=== PATIENT | male | born 1965 | race Caucasian/White ===

== ENCOUNTER 2018-04-29 15:35 | Emergency (ER) | payer BC, OTHER ==
[2018-04-29] MEDS ORDERED: Zofran 4 MG/2 ML VIAL IV ONE (15:36)
[2018-04-29] MEDS ORDERED: Sodium Chloride 0.9% 1000 ML 1,000 ML IV STA ×2 (15:36→16:09)
[2018-04-29] MEDS ORDERED: THIAMINE 200 MG/2 ML IV ONE (15:39)
--- NOTE | 2018-04-29 15:45 | ERPHSYRPT ---
- History of Present Illness Time Seen by Provider: 04/29/18 15:40 Source: EMS Exam Limitations: clinical condition Physician History: 53-year-old white male brought by medics with complaint patient unresponsive with breathing. Patient arrives he does withdraw from pain he is able to spontaneously rollover. He is not answering questions. patient has been doing some vomiting Past medical history hypertension Past surgical history includes skull fracture, 2 knee surgeries, patellar meniscus, appendix patient was given Narcan by medics prior to arrival Timing/Duration: today Severity: moderate Associated Symptoms: nausea, vomiting, other (Decreased level of consciousness) Allergies/Adverse Reactions: No Known Drug Allergies Allergy (Verified 04/29/18 16:04) Home Medications: Amlodipine Besylate 5 mg [Norvasc 5 mg] 5 mg PO DAILY 04/29/18 [History] - Review of Systems Constitutional: No Fever, No Chills Eyes: No Symptoms Ears, Nose, & Throat: No Symptoms Respiratory: No Cough, No Dyspnea Cardiac: No Chest Pain, No Edema, No Syncope Abdominal/Gastrointestinal: Nausea, Vomiting, No Abdominal Pain, No Diarrhea Genitourinary Symptoms: No Dysuria Musculoskeletal: No Back Pain, No Neck Pain Skin: No Rash Neurological: Headache, Other (decreased level of consciousness, vomiting) Psychological: No Symptoms Endocrine: No Symptoms All Other Systems: Reviewed and Negative - Nursing Vital Signs Nursing Vital Signs: Initial Vital Signs Temperature 100.4 F 04/29/18 15:45 Pulse Rate 75 04/29/18 15:45 Respiratory Rate 29 H 04/29/18 15:45 Blood Pressure 136/72 04/29/18 15:45 O2 Sat by Pulse Oximetry 93 L 04/29/18 15:45 Pain Scale Pain Intensity 0 - Physical Exam General Appearance: other (well-developed white male , nonverbal at this time. moves spontaneously. Localizes pain, rolls over purposefully cranial nerves II through 12 intact) Eye Exam: PERRL/EOMI, eyes nml inspection Ears, Nose, Throat Exam: normal ENT inspection, TMs normal, pharynx normal, moist mucous membranes Neck Exam: normal inspection, non-tender, supple, full range of motion Respiratory Exam: normal breath sounds, lungs clear, No respiratory distress Cardiovascular Exam: regular rate/rhythm, normal heart sounds, normal peripheral pulses Gastrointestinal/Abdomen Exam: soft, normal bowel sounds, No tenderness, No mass Back Exam: normal inspection, normal range of motion, No CVA tenderness, No vertebral tenderness Extremity Exam: normal inspection, normal range of motion, pelvis stable Neurologic Exam: lead sales consultant II-XII nml as tested, other (moves spontaneously, rolls over purposefully withdraws from pain, cranial nerves II through XII intact) Skin Exam: normal color, warm, dry, No rash SpO2 Interpretation: normal (99%) - Course Nursing assessment & vital signs reviewed: Yes EKG Interpreted by Me: RATE (76 bpm), NORMAL AXIS, Other (EKG: Sinus arrhythmia , 76 bpm, normal axis, no acute ST or T wave changes) - CT Exams Head CT Interpretation: Tele-radiologist Report (CT of the head without contrast: Impression: 1. Chronic microvascular. Bilateral inferior frontal encephalomalacia. More extensive on the. 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 No acute injury or lesion is identified. 2. Old fractures of the calvarium and frontal sinuses. Correlate for previous history of trauma. No acute fracture is identified.) Ordered Tests: Active Orders 24 hr Category Date Time Status Mri Technologist STAT Care 04/29/18 15:36 Active EKG-ER Only STAT Care 04/29/18 15:36 Active IV Insertion STAT Care 04/29/18 15:36 Active Pulse Oximetry (ED) STAT Care 04/29/18 15:36 Active CHEST 1 VIEW (PORTABLE) Stat Exams 04/29/18 15:36 Completed HEAD WITHOUT CONTRAST [CT] Stat Exams 04/29/18 15:36 Completed ACETAMINOPHEN Stat Lab 04/29/18 15:50 Completed BLOOD CULTURE Stat Lab 04/29/18 16:00 Received CBC W DIFF Stat Lab 04/29/18 15:50 Completed CMP Stat Lab 04/29/18 15:50 Completed CSF GLUCOSE Stat Lab 04/29/18 19:31 Received CSF PROTEIN Stat Lab 04/29/18 19:31 Received CSF, CELL COUNT Stat Lab 04/29/18 19:31 Results CULTURE,CSF Stat Lab 04/29/18 20:09 Ordered ETHYL ALCOHOL Stat Lab 04/29/18 15:50 Completed Glucose,Critical Care Stat Lab 04/29/18 15:36 Completed Lactic Acid Stat Lab 04/29/18 15:36 Completed Lactic Acid Stat Lab 04/29/18 18:18 Completed Lactic Acid Stat Lab 04/29/18 20:23 Ordered PROTIME WITH INR Stat Lab 04/29/18 16:30 Completed PTT Stat Lab 04/29/18 16:30 Completed SALICYLATE Stat Lab 04/29/18 15:50 Completed TROPONIN Q3H Lab 04/29/18 15:45 Completed TROPONIN Q3H Lab 04/29/18 18:30 Completed TROPONIN Q3H Lab 04/29/18 21:45 Ordered TROPONIN Q3H Lab 04/30/18 00:45 Ordered TROPONIN Q3H Lab 04/30/18 03:45 Ordered UA W/RFX UR CULTURE Stat Lab 04/29/18 16:30 Completed Urine Triage Profile Stat Lab 04/29/18 16:30 Completed VENOUS BLOOD GAS Stat Lab 04/29/18 15:36 Completed Medication Summary Generic Name Dose Route Start Last Admin Trade Name Freq PRN Reason Stop Dose Admin Vancomycin HCl 250 mls @ 167 mls/hr 04/29/18 19:30 04/29/18 19:51 Vancomycin 1gm/ Ns 250ml IV 04/29/18 20:59 167 mls/hr STAT ONE Administration Acyclovir Sodium 720 mg/ 100 mls @ 100 mls/hr 04/29/18 20:20 Dextrose IV 04/29/18 21:19 STAT ONE Discontinued Medications Generic Name Dose Route Start Last Admin Trade Name Freq PRN Reason Stop Dose Admin Acetaminophen 975 mg 04/29/18 17:45 04/29/18 17:51 Feverall 650 Mg RI 04/29/18 17:46 975 mg STAT ONE Administration Acetaminophen Confirm 04/29/18 17:50 Feverall 650 Mg Administered 04/29/18 17:51 Dose 1,300 mg .ROUTE .STK-MED ONE Ampicillin Sodium 2 g 04/29/18 20:19 Omnipen 2 Gm IV 04/29/18 20:20 1XONLY STA Sodium Chloride 1,000 mls @ 999 mls/hr 04/29/18 15:36 04/29/18 17:44 Sodium Chloride 0.9% 1000 Ml IV 04/29/18 16:36 Infused .Q1H1M STA Infusion Sodium Chloride 1,000 mls @ 999 mls/hr 04/29/18 16:09 04/29/18 17:45 Sodium Chloride 0.9% 1000 Ml IV 04/29/18 17:09 Infused .Q1H1M STA Infusion Sodium Chloride Confirm 04/29/18 16:15 Sodium Chloride 0.9% 1000 Ml Administered 04/29/18 16:16 Dose 2,000 mls @ ud .ROUTE .STK-MED ONE Ceftriaxone Sodium/Dextrose 1 g in 50 mls @ 100 mls/hr 04/29/18 16:28 17:44 Rocephin 1 Gm-D5w 50 Ml Bag IV 04/29/18 16:57 Infused STAT STA Infusion Ceftriaxone Sodium/Dextrose Confirm 04/29/18 16:40 Rocephin 1 Gm-D5w 50 Ml Bag Administered 04/29/18 16:41 Dose 1 g in 50 mls @ ud IV .STK-MED ONE Sodium Chloride Confirm 04/29/18 19:17 Sodium Chloride 0.9% 1000 Ml Administered 04/29/18 19:18 Dose 1,000 mls @ ud .ROUTE .STK-MED ONE Vancomycin HCl Confirm 04/29/18 19:50 Vancomycin 1gm/ Ns 250ml Administered 04/29/18 19:51 Dose 250 mls @ ud IV .STK-MED ONE Midazolam HCl Confirm 04/29/18 18:30 Versed 5 Mg/5 Ml Administered 04/29/18 18:31 Dose 5 mg .ROUTE .STK-MED ONE Midazolam HCl 2 mg 04/29/18 19:07 04/29/18 19:08 Versed 5 Mg/5 Ml IV 04/29/18 19:08 2 mg STAT ONE Administration Midazolam HCl 1 mg 04/29/18 19:07 04/29/18 19:08 Versed 5 Mg/5 Ml IV 04/29/18 19:08 1 mg STAT ONE Administration Naloxone HCl Confirm 04/29/18 17:26 Narcan 0.4 Mg/Ml Administered 04/29/18 17:27 Dose 0.4 mg .ROUTE .STK-MED ONE Naloxone HCl 0.4 mg 04/29/18 18:54 04/29/18 17:28 Narcan 0.4 Mg/Ml IV 04/29/18 18:55 0.4 mg STAT ONE Administration Ondansetron HCl 4 mg 04/29/18 15:36 04/29/18 16:22 Zofran 4 Mg/2 Ml Vial IV 04/29/18 15:37 4 mg STAT ONE Administration Ondansetron HCl Confirm 04/29/18 16:15 Zofran 4 Mg/2 Ml Vial Administered 04/29/18 16:16 Dose 4 mg .ROUTE .STK-MED ONE Thiamine HCl 100 mg 04/29/18 15:39 04/29/18 16:22 Thiamine 200 Mg/2 Ml IV 04/29/18 15:40 100 mg STAT ONE Administration Thiamine HCl Confirm 04/29/18 16:15 Thiamine 200 Mg/2 Ml Administered 04/29/18 16:16 Dose 200 mg .ROUTE .[facility] ONE Lab/Rad Data: Laboratory Result Diagrams 04/29/18 15:50 04/29/18 15:50 Laboratory Results 04/29/18 04/29/18 04/29/18 Range/Units 19:31 18:30 18:18 WBC (4.0-10.5) K/mm3 RBC (4.1-5.6) M/mm3 Hgb (12.5-18.0) gm/dl Hct (42-50) % MCV (78-100) fl MCH (26-32) pg MCHC (32-36) g/dl RDW (11.5-14.0) % Plt Count (150-450) K/mm3 MPV (6-9.5) fl Gran % (36.0-66.0) % Eos # (Auto) (0-0.5) Absolute Lymphs (auto) (1.0-4.6) Absolute Monos (auto) (0.0-1.3) Lymphocytes % (24.0-44.0) % Monocytes % (0.0-12.0) % Eosinophils % (0.00-5.0) % Basophils % (0.0-0.4) % Absolute Granulocytes (1.4-6.9) Basophils # (0-0.4) PT (8.83-12.87) SECONDS INR (0.8-3.0) APTT (24.1-36.1) SECONDS pO2/FiO2 Ratio % VBG pH (7.32-7.42) VBG pCO2 at Pat Temp (42-55) mm/Hg VBG pO2 at Pat Temp (25-40) mm/Hg VBG HCO3 (22-28) meq/L VBG O2 Sat (Simón) (95-100) VBG Base Excess (-2.0-2.0) VBG Hemoglobin VBG Carboxyhemoglobin (0.0-6.9) % T HGB POC Potassium (3.5-5.1) Glucose (70-110) Sodium (137-145) mmol/L Potassium (3.5-5.1) mmol/L Chloride (98-107) mmol/L Carbon Dioxide (22-30) mmol/L Anion Gap (5-15) MEQ/L BUN (9-20) mg/dL Creatinine (0.66-1.25) mg/dL Estimated GFR ML/MIN Lactic Acid 4.6 H (0.4-2.0) Calcium (8.4-10.2) mg/dL Total Bilirubin (0.2-1.3) mg/dL AST (17-59) U/L ALT (0-50) U/L Alkaline Phosphatase (38-126) U/L Troponin I < 0.012 (0.000-0.034) ng/mL Serum Total Protein (6.3-8.2) g/dL Albumin (3.5-5.0) g/dL Urine Color (YELLOW) Urine Appearance (CLEAR) Urine pH (5-6) Ur Specific Stephenson (1.005-1.025) Urine Protein (Negative) Urine Ketones (NEGATIVE) Urine Blood (0-5) John/ul Urine Nitrite (NEGATIVE) Urine Bilirubin (NEGATIVE) Urine Urobilinogen (0-1) mg/dL Ur Leukocyte Esterase (NEGATIVE) Urine WBC (Auto) (0-5) /HPF Urine RBC (Auto) (0-2) /HPF U Hyaline Cast (Auto) (0-2) /LPF U Epithel Cells (Auto) (FEW) /HPF Urine Bacteria (Auto) (NEGATIVE) /HPF Urine Mucus (Auto) (NEGATIVE) /HPF Urine Culture Reflexed (NO) Urine Glucose (NEGATIVE) mg/dL CSF Color XANTHROCHORMIC CSF Clarity CLOUDY CSF WBC Pending CSF RBC Pending Salicylates (2-20) mg/dL Urine Opiates Level (NEGATIVE) Ur Methadone (NEGATIVE) Acetaminophen (10-30) ug/ml Urine Barbiturates (NEGATIVE) Ur Phencyclidine (PCP) (NEGATIVE) Urine Amphetamine (NEGATIVE) U Benzodiazepine Level (NEGATIVE) Urine Cocaine (NEGATIVE) Urine Marijuana (THC) (NEGATIVE) Ethyl Alcohol (0-10) mg/dL Influenza Type A Ag (NEGATIVE) Influenza Type B Ag (NEGATIVE) RSV (PCR) (Negative) 04/29/18 04/29/18 04/29/18 Range/Units 17:45 16:30 16:30 WBC (4.0-10.5) K/mm3 RBC (4.1-5.6) M/mm3 Hgb (12.5-18.0) gm/dl Hct (42-50) % MCV (78-100) fl MCH (26-32) pg MCHC (32-36) g/dl RDW (11.5-14.0) % Plt Count (150-450) K/mm3 MPV (6-9.5) fl Gran % (36.0-66.0) % Eos # (Auto) (0-0.5) Absolute Lymphs (auto) (1.0-4.6) Absolute Monos (auto) (0.0-1.3) Lymphocytes % (24.0-44.0) % Monocytes % (0.0-12.0) % Eosinophils % (0.00-5.0) % Basophils % (0.0-0.4) % Absolute Granulocytes (1.4-6.9) Basophils # (0-0.4) PT (8.83-12.87) SECONDS INR (0.8-3.0) APTT (24.1-36.1) SECONDS pO2/FiO2 Ratio % VBG pH (7.32-7.42) VBG pCO2 at Pat Temp (42-55) mm/Hg VBG pO2 at Pat Temp (25-40) mm/Hg VBG HCO3 (22-28) meq/L VBG O2 Sat (Simón) (95-100) VBG Base Excess (-2.0-2.0) VBG Hemoglobin VBG Carboxyhemoglobin (0.0-6.9) % T HGB POC Potassium (3.5-5.1) Glucose (70-110) Sodium (137-145) mmol/L Potassium (3.5-5.1) mmol/L Chloride (98-107) mmol/L Carbon Dioxide (22-30) mmol/L Anion Gap (5-15) MEQ/L BUN (9-20) mg/dL Creatinine (0.66-1.25) mg/dL Estimated GFR ML/MIN Lactic Acid (0.4-2.0) Calcium (8.4-10.2) mg/dL Total Bilirubin (0.2-1.3) mg/dL AST (17-59) U/L ALT (0-50) U/L Alkaline Phosphatase (38-126) U/L Troponin I (0.000-0.034) ng/mL Serum Total Protein (6.3-8.2) g/dL Albumin (3.5-5.0) g/dL Urine Color YELLOW (YELLOW) Urine Appearance CLEAR (CLEAR) Urine pH 7.0 (5-6) Ur Specific Stephenson 1.018 (1.005-1.025) Urine Protein NEGATIVE (Negative) Urine Ketones NEGATIVE (NEGATIVE) Urine Blood NEGATIVE (0-5) John/ul Urine Nitrite NEGATIVE (NEGATIVE) Urine Bilirubin NEGATIVE (NEGATIVE) Urine Urobilinogen NEGATIVE (0-1) mg/dL Ur Leukocyte Esterase NEGATIVE (NEGATIVE) Urine WBC (Auto) 0-2 (0-5) /HPF Urine RBC (Auto) NONE (0-2) /HPF U Hyaline Cast (Auto) 0-2 (0-2) /LPF U Epithel Cells (Auto) NONE (FEW) /HPF Urine Bacteria (Auto) NONE (NEGATIVE) /HPF Urine Mucus (Auto) SLIGHT (NEGATIVE) /HPF Urine Culture Reflexed NO (NO) Urine Glucose NEGATIVE (NEGATIVE) mg/dL CSF Color CSF Clarity CSF WBC CSF RBC Salicylates (2-20) mg/dL Urine Opiates Level NEGATIVE (NEGATIVE) Ur Methadone NEGATIVE (NEGATIVE) Acetaminophen (10-30) ug/ml Urine Barbiturates NEGATIVE (NEGATIVE) Ur Phencyclidine (PCP) NEGATIVE (NEGATIVE) Urine Amphetamine NEGATIVE (NEGATIVE) U Benzodiazepine Level NEGATIVE (NEGATIVE) Urine Cocaine NEGATIVE (NEGATIVE) Urine Marijuana (THC) NEGATIVE (NEGATIVE) Ethyl Alcohol (0-10) mg/dL Influenza Type A Ag NEGATIVE (NEGATIVE) Influenza Type B Ag NEGATIVE (NEGATIVE) RSV (PCR) NEGATIVE (Negative) 04/29/18 04/29/18 04/29/18 Range/Units 16:30 15:50 15:50 WBC 9.1 (4.0-10.5) K/mm3 RBC 4.72 (4.1-5.6) M/mm3 Hgb 14.4 (12.5-18.0) gm/dl Hct 43.2 (42-50) % MCV 91.5 (78-100) fl MCH 30.5 (26-32) pg MCHC 33.3 (32-36) g/dl RDW 14.2 H (11.5-14.0) % Plt Count 382 (150-450) K/mm3 MPV 9.9 H (6-9.5) fl Gran % 94.7 H (36.0-66.0) % Eos # (Auto) 0 (0-0.5) Absolute Lymphs (auto) 0.23 L (1.0-4.6) Absolute Monos (auto) 0.25 (0.0-1.3) Lymphocytes % 2.5 L (24.0-44.0) % Monocytes % 2.7 (0.0-12.0) % Eosinophils % 0.0 (0.00-5.0) % Basophils % 0.1 (0.0-0.4) % Absolute Granulocytes 8.65 H (1.4-6.9) Basophils # 0.01 (0-0.4) PT 12.7 (8.83-12.87) SECONDS INR 1.09 (0.8-3.0) APTT 26.8 (24.1-36.1) SECONDS pO2/FiO2 Ratio % VBG pH (7.32-7.42) VBG pCO2 at Pat Temp (42-55) mm/Hg VBG pO2 at Pat Temp (25-40) mm/Hg VBG HCO3 (22-28) meq/L VBG O2 Sat (Simón) (95-100) VBG Base Excess (-2.0-2.0) VBG Hemoglobin VBG Carboxyhemoglobin (0.0-6.9) % T HGB POC Potassium (3.5-5.1) Glucose 158 H (70-110) Sodium 139 (137-145) mmol/L Potassium 3.2 L (3.5-5.1) mmol/L Chloride 104 (98-107) mmol/L Carbon Dioxide 24 (22-30) mmol/L Anion Gap 14.6 (5-15) MEQ/L BUN 16 (9-20) mg/dL Creatinine 0.88 (0.66-1.25) mg/dL Estimated GFR > 60.0 ML/MIN Lactic Acid (0.4-2.0) Calcium 9.6 (8.4-10.2) mg/dL Total Bilirubin 1.40 H (0.2-1.3) mg/dL AST 36 (17-59) U/L ALT 63 H (0-50) U/L Alkaline Phosphatase 82 (38-126) U/L Troponin I (0.000-0.034) ng/mL Serum Total Protein 7.7 (6.3-8.2) g/dL Albumin 4.5 (3.5-5.0) g/dL Urine Color (YELLOW) Urine Appearance (CLEAR) Urine pH (5-6) Ur Specific Stephenson (1.005-1.025) Urine Protein (Negative) Urine Ketones (NEGATIVE) Urine Blood (0-5) John/ul Urine Nitrite (NEGATIVE) Urine Bilirubin (NEGATIVE) Urine Urobilinogen (0-1) mg/dL Ur Leukocyte Esterase (NEGATIVE) Urine WBC (Auto) (0-5) /HPF Urine RBC (Auto) (0-2) /HPF U Hyaline Cast (Auto) (0-2) /LPF U Epithel Cells (Auto) (FEW) /HPF Urine Bacteria (Auto) (NEGATIVE) /HPF Urine Mucus (Auto) (NEGATIVE) /HPF Urine Culture Reflexed (NO) Urine Glucose (NEGATIVE) mg/dL CSF Color CSF Clarity CSF WBC CSF RBC Salicylates < 1.0 L (2-20) mg/dL Urine Opiates Level (NEGATIVE) Ur Methadone (NEGATIVE) Acetaminophen < 10 L (10-30) ug/ml Urine Barbiturates (NEGATIVE) Ur Phencyclidine (PCP) (NEGATIVE) Urine Amphetamine (NEGATIVE) U Benzodiazepine Level (NEGATIVE) Urine Cocaine (NEGATIVE) Urine Marijuana (THC) (NEGATIVE) Ethyl Alcohol < 10 (0-10) mg/dL Influenza Type A Ag (NEGATIVE) Influenza Type B Ag (NEGATIVE) RSV (PCR) (Negative) 04/29/18 04/29/18 Range/Units 15:45 15:36 WBC (4.0-10.5) K/mm3 RBC (4.1-5.6) M/mm3 Hgb (12.5-18.0) gm/dl Hct (42-50) % MCV (78-100) fl MCH (26-32) pg MCHC (32-36) g/dl RDW (11.5-14.0) % Plt Count (150-450) K/mm3 MPV (6-9.5) fl Gran % (36.0-66.0) % Eos # (Auto) (0-0.5) Absolute Lymphs (auto) (1.0-4.6) Absolute Monos (auto) (0.0-1.3) Lymphocytes % (24.0-44.0) % Monocytes % (0.0-12.0) % Eosinophils % (0.00-5.0) % Basophils % (0.0-0.4) % Absolute Granulocytes (1.4-6.9) Basophils # (0-0.4) PT (8.83-12.87) SECONDS INR (0.8-3.0) APTT (24.1-36.1) SECONDS pO2/FiO2 Ratio 28.0 % VBG pH 7.37 (7.32-7.42) VBG pCO2 at Pat Temp 42 (42-55) mm/Hg VBG pO2 at Pat Temp 33 (25-40) mm/Hg VBG HCO3 24.3 (22-28) meq/L VBG O2 Sat (Simón) 70.2 L (95-100) VBG Base Excess -1.1 (-2.0-2.0) VBG Hemoglobin 14.6 VBG Carboxyhemoglobin 2.3 (0.0-6.9) % T HGB POC Potassium 3.1 L (3.5-5.1) Glucose 161 H (70-110) Sodium (137-145) mmol/L Potassium (3.5-5.1) mmol/L Chloride (98-107) mmol/L Carbon Dioxide (22-30) mmol/L Anion Gap (5-15) MEQ/L BUN (9-20) mg/dL Creatinine (0.66-1.25) mg/dL Estimated GFR ML/MIN Lactic Acid 3.8 H (0.4-2.0) Calcium (8.4-10.2) mg/dL Total Bilirubin (0.2-1.3) mg/dL AST (17-59) U/L ALT (0-50) U/L Alkaline Phosphatase (38-126) U/L Troponin I < 0.012 (0.000-0.034) ng/mL Serum Total Protein (6.3-8.2) g/dL Albumin (3.5-5.0) g/dL Urine Color (YELLOW) Urine Appearance (CLEAR) Urine pH (5-6) Ur Specific Stephenson (1.005-1.025) Urine Protein (Negative) Urine Ketones (NEGATIVE) Urine Blood (0-5) John/ul Urine Nitrite (NEGATIVE) Urine Bilirubin (NEGATIVE) Urine Urobilinogen (0-1) mg/dL Ur Leukocyte Esterase (NEGATIVE) Urine WBC (Auto) (0-5) /HPF Urine RBC (Auto) (0-2) /HPF U Hyaline Cast (Auto) (0-2) /LPF U Epithel Cells (Auto) (FEW) /HPF Urine Bacteria (Auto) (NEGATIVE) /HPF Urine Mucus (Auto) (NEGATIVE) /HPF Urine Culture Reflexed (NO) Urine Glucose (NEGATIVE) mg/dL CSF Color CSF Clarity CSF WBC CSF RBC Salicylates (2-20) mg/dL Urine Opiates Level (NEGATIVE) Ur Methadone (NEGATIVE) Acetaminophen (10-30) ug/ml Urine Barbiturates (NEGATIVE) Ur Phencyclidine (PCP) (NEGATIVE) Urine Amphetamine (NEGATIVE) U Benzodiazepine Level (NEGATIVE) Urine Cocaine (NEGATIVE) Urine Marijuana (THC) (NEGATIVE) Ethyl Alcohol (0-10) mg/dL Influenza Type A Ag (NEGATIVE) Influenza Type B Ag (NEGATIVE) RSV (PCR) (Negative) - Progress Progress: improved Progress Note: 04/29/18 18:55 Attempt made to obtain a lumbar puncture. Consent was signed by the patient's . Patient with the lumbar puncture attempt with the sterile procedure. Unsuccessful. 04/29/18 18:56 53-year-old white male who arrives unresponsive with medics. Patient apparently has had a headache all day long. went to check on patient and he appeared to be vomiting later became unresponsive. On arrival patient is resistant to rolling him over and actively resists this he attempted strep test. Labs are obtained patient is given 3 L of normal saline he was noted to have a lactate of 3.8 this as elevated. Patient is also given Rocephin 1 g IV. 04/29/18 19:01 I have contacted the anesthesiologist and asked him to try to obtain a lumbar puncture. 04/29/18 19:30 Anesthesia is successful with lumbar puncture,fluid cloudy. vancomycin 1 gram iv ordered 04/29/18 20:33 the patient's case was discussed with Dr Balbuena, through [facility] she reccomended adding 2 grams of ampicillin, and 720 mg of acyclovir which were ordered. the patient's case was discussed with her and she accepted the patient for transfer. I have asked greenhouse specialist to contact Dr Porter and infection control nurse and inform of this patient. here at this hospital. The patient will be transferred to [facility] when a bed is available. - Departure Time of Disposition: 20:39 Departure Disposition: Transfer ([facility] Dr Balbuena) Clinical Impression: Meningitis Altered mental status Qualifiers: Altered mental status type: unspecified Qualified Code(s): R41.82 - Altered mental status, unspecified Condition: Fair Critical Care Time: Yes Critical Care Time(excluding separately billable procedures): 75-104 minutes Referrals: DOCTOR,NO FAMILY [Primary Care Provider] -
[2018-04-29 16:07] LABS: Glucose,Critical Care 161 (70-110); Lactic Acid 3.8 (0.4-2.0); VBG BASE EXCESS -1.1 (-2.0-2.0); VBG CARBOXYHEMOGLOBIN 2.3 % T HGB (0.0-6.9); VBG HCO3- 24.3 meq/L (22-28); VBG HEMOGLOBIN 14.6; VBG O2 SATURATION 70.2 (95-100); VBG PCO2 42 mm/Hg (42-55); VBG PO2 33 mm/Hg (25-40); VBG POTASSIUM 3.1 (3.5-5.1); VBG pH 7.37 (7.32-7.42)
[2018-04-29] MEDS ORDERED: Sodium Chloride 0.9% 1000 ML 2,000 ML ONE (16:15)
[2018-04-29] MEDS ORDERED: Zofran 4 MG/2 ML VIAL ONE (16:15)
[2018-04-29] MEDS ORDERED: THIAMINE 200 MG/2 ML ONE (16:15)
[2018-04-29] MEDS ORDERED: ROCEPHIN 1 Gm-D5w 50 ml Bag** 1 G/50 ML IVPB IV STA (16:28)
[2018-04-29] MEDS ORDERED: ROCEPHIN 1 Gm-D5w 50 ml Bag** 1 G/50 ML IVPB IV ONE (16:40)
[2018-04-29 16:42] LABS: BASOPHIL % 0.1 % (0.0-0.4); Basophil (Absolute #) 0.01 (0-0.4); Eosinophil (Absolute #) 0 (0-0.5); Granulocytes % 94.7 % (36.0-66.0); Hematocrit 43.2 % (42-50); Hemoglobin 14.4 gm/dl (12.5-18.0); Lymphocyte (Absolute #) 0.23 (1.0-4.6); Lymphocytes % 2.5 % (24.0-44.0); Mean Cell Volume 91.5 fl (78-100); Mean Corpuscular Hemoglobin 30.5 pg (26-32); Mean Corpuscular Hgb Concent. 33.3 g/dl (32-36); Mean Platelet Volume 9.9 fl (6-9.5); Monocyte (Absolute #) 0.25 (0.0-1.3); Monocytes % 2.7 % (0.0-12.0); Platelet Count 382 K/mm3 (150-450); Red Blood Count 4.72 M/mm3 (4.1-5.6); Red Cell Distribution Width 14.2 % (11.5-14.0); White Blood Count 9.1 K/mm3 (4.0-10.5)
[2018-04-29 16:53] LABS: INR 1.09 (0.8-3.0); PROTIME 12.7 SECONDS (8.83-12.87)
[2018-04-29 16:56] LABS: PTT 26.8 SECONDS (24.1-36.1)
[2018-04-29 16:59] LABS: ALBUMIN 4.5 g/dL (3.5-5.0); ALKALINE PHOSPHATASE 82 U/L (38-126); ANION GAP 14.6 MEQ/L (5-15); BLOOD UREA NITROGEN 16 mg/dL (9-20); CHLORIDE 104 mmol/L (98-107); Calcium 9.6 mg/dL (8.4-10.2); Carbon Dioxide 24 mmol/L (22-30); Creatinine 1 0.88 mg/dL (0.66-1.25); Glucose 158 mg/dL (74-106); Potassium 3.2 mmol/L (3.5-5.1); SGOT/AST 36 U/L (17-59); SGPT/ALT 63 U/L (0-50); SODIUM 139 mmol/L (137-145); Total Protein 7.7 g/dL (6.3-8.2)
[2018-04-29] MEDS ORDERED: DIPRIVAN 200 MG/20 ML IV ONE (17:00)
[2018-04-29 17:08] LABS: Amphetamine,Urine NEGATIVE (NEGATIVE); Barbiturate,Urine NEGATIVE (NEGATIVE); Benzodiazepine,Urine NEGATIVE (NEGATIVE); Cocaine,Urine NEGATIVE (NEGATIVE); Methadone,Urine NEGATIVE (NEGATIVE); Opiate,Urine NEGATIVE (NEGATIVE); PCP,Urine NEGATIVE (NEGATIVE); THC,Urine NEGATIVE (NEGATIVE)
[2018-04-29 17:12] LABS: ACETAMINOPHEN < 10 ug/ml (10-30); ETHYL ALCOHOL < 10 mg/dL (0-10); SALICYLATE < 1.0 mg/dL (2-20)
[2018-04-29 17:12] LABS: Appearance CLEAR (CLEAR); Bilirubin NEGATIVE (NEGATIVE); Blood NEGATIVE Ery/ul (0-5); Glucose NEGATIVE (NEGATIVE); Hyaline Casts 0-2 /LPF (0-2); Ketones NEGATIVE (NEGATIVE); Leukocyte Esterase NEGATIVE (NEGATIVE); Mucus SLIGHT /HPF (NEGATIVE); Nitrite NEGATIVE (NEGATIVE); Protein,Urine Dip NEGATIVE (Negative); Specific Gravity 1.018 (1.005-1.025); Urobilinogen NEGATIVE mg/dL (0-1); WBC 0-2 /HPF (0-5)
[2018-04-29] MEDS ORDERED: Narcan 0.4 MG/ML ONE (17:26)
[2018-04-29] MEDS ORDERED: FEVERALL 650 MG PR ONE (17:45)
[2018-04-29] MEDS ORDERED: FEVERALL 650 MG ONE (17:50)
[2018-04-29 18:25] LABS: Lactic Acid 4.6 (0.4-2.0)
[2018-04-29] MEDS ORDERED: VERSED 5 MG/5 ML ONE (18:30)
[2018-04-29 18:51] LABS: INFLUENZA A NEGATIVE (NEGATIVE); INFLUENZA B NEGATIVE (NEGATIVE); RESPIRATORY SYNCTIAL VIRUS NEGATIVE (Negative)
[2018-04-29] MEDS ORDERED: Narcan 0.4 MG/ML IV ONE (18:54)
[2018-04-29] MEDS ORDERED: VERSED 5 MG/5 ML IV ONE ×2 (19:07)
[2018-04-29] MEDS ORDERED: Sodium Chloride 0.9% 1000 ML 1,000 ML ONE (19:17)
[2018-04-29] MEDS ORDERED: Vancomycin 1GM/ Ns 250ML*** 250 ML IV ONE ×2 (19:30→19:50)
--- NOTE | 2018-04-29 19:53 | XRAY ---
Indication: Found unresponsive. Headache. Comparison: December 18, 2013. Portable chest less inflated and remains clear again with incidental calcified granulomas. Heart is borderline enlarged reasonably explained due to under inflation. Bony thorax intact again with mild degenerative changes. Impression: Nonacute underinflated chest with chronic features.
--- NOTE | 2018-04-29 19:55 | XRAY ---
Indication: Found unresponsive. Headache. Multiple contiguous axial images obtained through the head without contrast. Comparison: None Ventriculosulcal pattern appears symmetric. Minimal periventricular degenerative microvascular ischemia bilaterally. No acute intracranial hemorrhage, abnormal extra-axial fluid collection, or mass effect. Fourth ventricle is midline without hydrocephalus. Ortega-white matter differentiation preserved. Bony calvarium intact. Old right frontal bone fracture. Moderately mucosal thickening of the visualized ethmoid sinuses bilaterally and right maxillary sinus. Mastoid air cells are clear. Impression: Age-related degenerative microvascular ischemia. No acute intracranial abnormalities. Incidental paranasal sinus disease. Comment: Preliminary interpretation was made by [facility]. No discrepancy. CTDI 66.12
[2018-04-29 20:00] LABS: CSF COLOR XANTHROCHORMIC
[2018-04-29] MEDS ORDERED: OMNIPEN 2 GM*** 2 G in Sodium Chloride 100ML MINI-BAG PLUS 100 ML IV ONE (20:00)
[2018-04-29 20:01] LABS: CSF CLARITY CLOUDY
[2018-04-29] MEDS ORDERED: OMNIPEN 2 GM IV STA (20:19)
[2018-04-29] MEDS ORDERED: ZOVIRAX IV ONE (20:20)
[2018-04-29] MEDS ORDERED: D5W MINI IV ONE (20:20)
[2018-04-29 20:53] LABS: Lactic Acid 2.5 (0.4-2.0)
[2018-04-29 21:33] LABS: CSF GLUCOSE < 20 mg/dL (40-70); CSF PROTEIN > 600 mg/dL (12-60)
[2018-04-29 22:15] VITALS: BP 124/66; PULSE 83; O2SAT 98
[2018-04-30 04:40] LABS: CSF RBCS 380 CU. MM (0-2)
[2018-04-30 05:16] LABS: CSF WBCS 4800 CU. MM (0-6)
[2018-04-30 05:39] LABS: Slide Review 1 YES
== END 2018-04-29 22:45 | disposition short-term general hospital (02) ==
LOC: ED 15:35
DX: G03.9 Meningitis, unspecified (principal); R41.82 Altered mental status, unspecified; G93.89 Other specified disorders of brain; R11.10 Vomiting, unspecified
CPT/HCPCS: 70450; 80053; 80307; 81001; 82805; 82945; 82947; 83605; 84157; 84484; 85025; 85610; 85730; 87040; 87070; 87077; 87631; 89050; 93005; 93041; 94799; 96360; 96361; 96365; 96367; 96374; 96375; 96376; 99291; 99292; G0481; 36000; 36415; 71045; 99285; J0133; J0290; J0696; J2250; J2310; J2405; J2704; J3370; A9270-GY; G0480

== ENCOUNTER 2019-02-15 07:18 | Day surgery (SDC) | payer BC ==
[~2019-02-15 07:18] MED LIST: Lactated Ringers 1,000 ML IV ONE; Lactated Ringers 1,000 ML IV SCH
[2019-02-15] MEDS ORDERED: VERSED 5 MG/5 ML IV ONE (07:19)
[2019-02-15] MEDS ORDERED: DEMEROL 50 MG IJ ONE (07:19)
--- NOTE | 2019-02-15 08:04 | HP ---
DATE OF SURGERY: 02/15/2019 ANTICIPATED PROCEDURE: Screening colonoscopy. HISTORY OF PRESENT ILLNESS: PAST MEDICAL HISTORY: ALLERGIES: NKDA. MEDICATIONS: Norvasc. PAST SURGICAL HISTORY: Knee surgery. SOCIAL HISTORY: Chewing tobacco x1. Alcohol negative. FAMILY HISTORY: Negative. REVIEW OF SYSTEMS: Hypertension. PHYSICAL EXAMINATION: VITAL SIGNS: Normal. CHEST: Clear. COR: Regular. ABDOMEN: Satisfactory. PLAN: Screening colonoscopy.
[2019-02-15 12:30] VITALS: O2SAT 96
[2019-02-15 12:55] VITALS: BP 127/76; PULSE 54
--- NOTE | 2019-02-15 15:37 | OP ---
SURGERY DATE/TIME: 02/15/2019 1105 PREOPERATIVE DIAGNOSIS: Screening. POSTOPERATIVE DIAGNOSIS: Normal. FOLLOW UP: Rescope in five years. PREP SCORE: Excellent. WITHDRAWAL TIME: 6 minutes. FINDINGS: Normal. PROCEDURE: Colonoscopy complete to cecum. SURGEON: Surjit Landry M.D. ANESTHESIA: IVS. COMPLICATIONS: None. CONDITION: Stable. INDICATION: A patient requiring evaluation. DESCRIPTION OF PROCEDURE: Taken to endoscopy. Left lateral decubitus position. Anal digital examination satisfactory. Prostate satisfactory. Scope advanced to the cecum. Base of cecum, ileocecal valve and appendiceal orifice, ascending, hepatic, transverse, splenic, descending, sigmoid, rectum, anus were normal. PLAN: Follow up in five years.
== END 2019-02-15 12:56 | disposition home or self-care (01) ==
LOC: SDC 07:18
PROVIDERS: ATTEND Surgery
DX: Z12.11 Encounter for screening for malignant neoplasm of colon (principal); I10 Essential (primary) hypertension
CPT/HCPCS: J2175; J2250